=== PATIENT | female | born 1990 | race Caucasian/White ===

== ENCOUNTER 2022-05-15 17:20 | Inpatient (IN) | payer OTHER ==
[2022-05-15] MEDS: ELECTROLYTE-148 SOLN 1,000 ML IV SCH (18:00)
[2022-05-15 19:21] VITALS: BMI 32.8
[2022-05-15] MEDS ORDERED: DINOPROSTONE 10 MG VAGINAL SUPPOSITORY VG ONE (19:22)
[2022-05-15] MEDS ORDERED: AMPICILLIN - 2 GM in SODIUM CHLORIDE 100 ML IVPB ONE (19:24)
[2022-05-15 19:31] LABS: BASO % 0.4 % (0-2.0); EOS % 0.5 % (0-4.5); HEMATOCRIT 38.6 % (32.4-45.2); HEMOGLOBIN 12.8 GM/dL (10.7-15.3); LYMPH % 23.5 % (8-40); MCH 29.4 pg (25.7-33.7); MCHC 33.3 g/dl (32.0-36.0); MEAN CELL VOLUME 88.5 fl (80-96); MEAN PLT VOLUME 8.2 fl (7.5-11.1); MONO % 5.5 % (3.8-10.2); NEUT % 70.1 % (42.8-82.8); PLATELET COUNT 218 10^3/uL (134-434); RBC 4.37 M/mm3 (3.60-5.2)
[2022-05-15 19:40] LABS: CALCIUM 8.7 mg/dL (8.5-10.1)
[2022-05-15 19:41] LABS: BLOOD UREA NITROGEN 9.2 mg/dL (7-18)
[2022-05-15 19:42] LABS: INR 0.99 (0.83-1.09); PROTHROMBIN TIME (PATIENT) 11.5 SEC (9.7-13.0)
[2022-05-15 19:44] LABS: CREATININE 0.6 mg/dL (0.55-1.3)
[2022-05-15 19:45] LABS: ACTIVATED PTT 28.5 SECONDS (25.2-36.5)
[2022-05-15] MEDS ORDERED: AMPICILLIN - 1 GM in SODIUM CHLORIDE 100 ML IVPB SCH (23:30)
[2022-05-16] MEDS: ELECTROLYTE-148 SOLN 1,000 ML IV SCH (02:00)
[2022-05-16] MEDS ORDERED: AMPICILLIN SODIUM 2 GM VIAL ONE (06:28)
[2022-05-16] MEDS ORDERED: AMPICILLIN - 2 GM in SODIUM CHLORIDE 100 ML IVPB ONE (06:30)
[2022-05-16] MEDS ORDERED: OXYTOCIN 30 UNITS in 0.9% NS 30 UNIT/500 ML INFUS.BAG IVPB SCH (06:30)
[2022-05-16] MEDS ORDERED: OXYTOCIN 30 UNITS in 0.9% NS 30 UNIT/500 ML INFUS.BAG IVPB ONE (08:29)
[2022-05-16] MEDS ORDERED: AMPICILLIN SODIUM 1 GM VIAL ONE ×3 (10:24→18:33)
[2022-05-16] MEDS: AMPICILLIN - 1 GM in SODIUM CHLORIDE 100 ML IVPB SCH ×3 (10:30→18:42)
[2022-05-16] MEDS ORDERED: CITRIC ACID/SODIUM CITRATE 30 ML UNIT-DOSE CUP PO ONE (19:30)
[2022-05-16] MEDS ORDERED: morphine SULFATE (PF) 1 MG/2 ML SYRINGE ONE (19:53)
[2022-05-16] MEDS ORDERED: ePHEDrine SULFATE 50 MG/1 ML AMPULE ONE (20:14)
[2022-05-16] MEDS ORDERED: oxyCODONE HCL 5 MG TABLET PO PRN (21:13)
[2022-05-16] MEDS ORDERED: ONDANSETRON 4 MG/2 ML VIAL IVPB PRN (21:13)
[2022-05-16] MEDS ORDERED: SENNOSIDES/DOCUSATE COMBO (SENNA PLUS) TABLET (UD) PO PRN (21:13)
[2022-05-16] MEDS ORDERED: OXYTOCIN 20 UNITS in 0.9% NS 20 UNIT/1,000 ML INFUS.BAG IV SCH (21:15)
[2022-05-16] MEDS ORDERED: HYDROmorphone HCl 2 MG/ML VIAL IVPB ONE (21:20)
[2022-05-16] MEDS ORDERED: IBUPROFEN 800 MG/8 ML IJ IVPB ONE (22:27)
[2022-05-16] MEDS ORDERED: OXYTOCIN 20 UNITS in 0.9% NS 20 UNIT/1,000 ML INFUS.BAG IV ONE (22:51)
[2022-05-17] MEDS: ACETAMINOPHEN 1000 MG/100 ML BAG IVPB SCH ×5 (02:18→21:19)
[2022-05-17] MEDS: IBUPROFEN 800 MG/8 ML IJ IVPB SCH ×3 (05:10→13:25)
[2022-05-17] MEDS: AMPICILLIN - 1 GM in SODIUM CHLORIDE 100 ML IVPB SCH ×2 (06:58→06:59)
[2022-05-17] MEDS: ELECTROLYTE-148 SOLN 1,000 ML IV SCH (06:59)
[2022-05-17 07:08] LABS: BASO % 0.4 % (0-2.0); EOS % 0.9 % (0-4.5); HEMATOCRIT 31.3 % (32.4-45.2); HEMOGLOBIN 10.4 GM/dL (10.7-15.3); LYMPH % 19.6 % (8-40); MCH 30.3 pg (25.7-33.7); MCHC 33.3 g/dl (32.0-36.0); MEAN CELL VOLUME 90.9 fl (80-96); MEAN PLT VOLUME 8.2 fl (7.5-11.1); MONO % 5.4 % (3.8-10.2); NEUT % 73.7 % (42.8-82.8); PLATELET COUNT 171 10^3/uL (134-434); RBC 3.44 M/mm3 (3.60-5.2); RDW 13.9 % (11.6-15.6); WHITE BLOOD COUNT 8.6 K/mm3 (4.0-10.0)
[2022-05-17] MEDS: SIMETHICONE 80 MG TAB.CHEW (FP) PO PRN ×2 (08:28→21:11)
[2022-05-17] MEDS ORDERED: oxyCODONE HCL 5 MG TABLET PO PRN (10:09)
[2022-05-17 13:08] LABS: POC NITRAZINE POS
[2022-05-17] MEDS: FERROUS SO4 325 MG TABLET (FP) PO SCH (13:26)
[2022-05-17] MEDS: IBUPROFEN 600 MG TABLET (FP) PO PRN (21:11)
[2022-05-17] MEDS ORDERED: ACETAMINOPHEN 325 MG TABLET (FP) PO PRN ×2 (21:13)
[2022-05-17] MEDS ORDERED: BISACODYL 10 MG SUPP.RECT RC PRN (21:14)
[2022-05-17 21:58] VITALS: RESP 18
[2022-05-18] MEDS: IBUPROFEN 600 MG TABLET (FP) PO PRN ×3 (06:38→20:07)
[2022-05-18] MEDS: FERROUS SO4 325 MG TABLET (FP) PO SCH (09:55)
[2022-05-18] MEDS: SIMETHICONE 80 MG TAB.CHEW (FP) PO PRN ×2 (11:58→20:07)
[2022-05-19] MEDS: IBUPROFEN 600 MG TABLET (FP) PO PRN ×2 (06:06→10:15)
[2022-05-19] MEDS: SIMETHICONE 80 MG TAB.CHEW (FP) PO PRN ×2 (06:07→10:16)
[2022-05-19 09:55] VITALS: BP 122/72; PULSE 997; TEMP 98.5
[2022-05-19] MEDS: FERROUS SO4 325 MG TABLET (FP) PO SCH (10:16)
== END 2022-05-19 11:35 | disposition home or self-care (01) | DRG 540 ==
LOC: JLDR 17:20 → J3W 05-16 22:48
PROVIDERS: ADMIT Specialist; ATTEND Specialist
PROC: 3E0P7VZ Introduction of Hormone into Female Reproductive, Via Natural or Artificial Opening (ICD-10-PCS; 2022-05-15)
PROC: 10D00Z1 Extraction of Products of Conception, Low, Open Approach (ICD-10-PCS; principal; 2022-05-16)
DX: O41.03X0 Oligohydramnios, third trimester, not applicable or unspecified (principal); O61.0 Failed medical induction of labor; O76 Abnormality in fetal heart rate and rhythm complicating labor and delivery; O99.824 Streptococcus B carrier state complicating childbirth; Z3A.38 38 weeks gestation of pregnancy; Z37.0 Single live birth; Z86.11 Personal history of tuberculosis
CPT/HCPCS: 36415; 80048; 83986-QW; 85025; 85610; 85730; 86780; 86850; 86900; 86901; 88307-TC; C9803-CS; U0003; U0005